=== PATIENT | male | born 1945 | race Caucasian/White ===

== ENCOUNTER 2018-04-18 05:30 | Day surgery (SDC) | payer OTHER ==
[~2018-04-18] VITALS: Ht 180.3 cm; Wt 114.0 kg
[~2018-04-18 05:30] MED LIST: AMLO10TA7 PO; ATOR-2 PO; CHOL1CRY2 MC; DOXY100C40 PO; FOLI1TAB61 PO; GABA-531 PO; HYDR-4153 PO; HYDR25TA PO; LOSA100T58 PO; NPH,100V11 SQ; OXYB5TAB10 PO; PLOGLITAZONE PO; RANI150C4 PO; SAXA5TAB PO
[2018-04-18] MEDS ORDERED: SODIUM CHLORIDE 0.9% 1000ML 1,000 ML IV ONE (05:42)
[2018-04-18 06:15] VITALS: BP 149/75
[2018-04-18] MEDS ORDERED: PROPOFOL 10 MG/ML 20ML VIAL IV ONE (06:31)
[2018-04-18] MEDS ORDERED: GLYCOPYRROLATE 0.2 MG/ML 5 ML VIAL ONE (06:33)
[2018-04-18] MEDS ORDERED: PHENYLEPHRINE HCL 10 MG/ML 1ML VIAL IV ONE (06:33)
[2018-04-18] MEDS ORDERED: SODIUM CHLORIDE 0.9% 10 ML VIAL ONE (06:33)
[2018-04-18 06:57] VITALS: BP 96/45
[2018-04-18 07:00] VITALS: BP 112/56
[2018-04-18 07:05] VITALS: BP 115/69
[2018-04-18 07:10] VITALS: BP 113/84
== END 2018-04-18 07:26 | disposition home or self-care (01) ==
LOC: DAH 05:30 → ENDO 05:30 → EDSTATUS 15:14
PROVIDERS: ATTEND Internal Medicine
DX: Z12.11 Encounter for screening for malignant neoplasm of colon (principal); D12.3 Benign neoplasm of transverse colon; D12.4 Benign neoplasm of descending colon; D12.5 Benign neoplasm of sigmoid colon; K64.0 First degree hemorrhoids; K57.30 Diverticulosis of large intestine without perforation or abscess without bleeding; Z86.010 Personal history of colon polyps; Z68.36 Body mass index [BMI] 36.0-36.9, adult; Z79.899 Other long term (current) drug therapy; Z79.84 Long term (current) use of oral hypoglycemic drugs; Z79.01 Long term (current) use of anticoagulants; E78.5 Hyperlipidemia, unspecified; I12.9 Hypertensive chronic kidney disease with stage 1 through stage 4 chronic kidney disease, or unspecified chronic kidney disease; E11.22 Type 2 diabetes mellitus with diabetic chronic kidney disease; N18.9 Chronic kidney disease, unspecified; M19.90 Unspecified osteoarthritis, unspecified site; Z98.49 Cataract extraction status, unspecified eye; Z98.890 Other specified postprocedural states; E66.01 Morbid (severe) obesity due to excess calories; R00.1 Bradycardia, unspecified
CPT/HCPCS: 45380; 82948 ×2; 88305; 93005; A4606; J2370; J2704; J3490; J7030